=== PATIENT | female | born 1955 | race Caucasian/White ===

== ENCOUNTER 2017-11-16 12:14 | Emergency (ER) | payer BC, OTHER ==
[2017-11-16 12:28] VITALS: RESP 16; O2SAT 98
--- NOTE | 2017-11-16 12:44 | EDPHY ---
H & P Stated Complaint: BLOOD IN STOOL Time Seen by Provider: 11/16/17 12:27 - Personal History Current Tetanus/Diphtheria Vaccine: Yes - Medical/Surgical History Hx Asthma: No Hx Chronic Respiratory Disease: No Hx Diabetes: No Hx Cardiac Disease: No Hx Renal Disease: No Hx Cirrhosis: No Hx Alcoholism: No Hx HIV/AIDS: No Hx Splenectomy or Spleen Trauma: No Other PMH: tonsilectomy. r ovary removed. ortho surg. GI BLEED - Social History Smoking Status: Never smoked Constitutional: Initial Vital Signs Temperature (C) 36.9 C 11/16/17 12:27 Heart Rate 96 11/16/17 12:27 Respiratory Rate 16 11/16/17 12:27 Blood Pressure 137/127 H 11/16/17 12:27 O2 Sat (%) 98 11/16/17 12:27 O2 Delivery Mode Room Air Allergies/Adverse Reactions: No Known Allergies Allergy (Unverified 04/20/14 21:19) Home Medications: Medication Instructions Recorded Acyclovir [Zovirax 400 mg (*)] 400 mg PO TID #12 tab 04/20/14 Banco Thyroid 04/20/14 Bio Identical Hormones 04/20/14 Medical Decision Making - Diagnostics Imaging: Discussed imaging studies w/ learning technologist Radiologist ED Course/Re-evaluation: CHIEF COMPLAINT: Rectal bleeding HISTORY OF PRESENT ILLNESS: The patient is a 62 y/o female complaining of rectal bleeding this morning. She has a history of a bleeding gastric ulcer while on NSAIDs 23 years ago that required hospitalization for profound anemia. A couple weeks ago she noticed "a spot of red blood" in her stool. Today she had bright red blood in the toilet bowl with small hard stools. Bowel movements are not painful and she has not noticed any associated rectal pain. She does mention she has had a "noticeable twinge" in her left mid abdomen occasionally over the last couple months that she specifically does not describe as painful. She denies lightheadedness, syncope or near-syncope, vomiting, fever, recent illness, or recent trauma. REVIEW OF SYSTEMS: A 10 point review of systems was performed and is negative with the exception of the elements mentioned in the history of present illness. PHYSICAL EXAM: HR, BP, O2 Sat, RR. Temp noted General Appearance: Alert, well hydrated, appropriate, and non-toxic appearing. Head: Atraumatic without scalp tenderness or obvious injury Eyes: Pupils equal, round, reactive to light and accommodation, EOMI, no trauma , no injection. Nose: Atraumatic, no rhinorrhea, clear. Throat:Mucus membranes moist. Neck: Supple Respiratory: No retractions, no distress, no wheezes, and no accessory muscle use. Lungs are clear to auscultation bilaterally. Cardiovascular: Regular rate and rhythm, no murmurs, rubs, or gallops. Good capillary refill all extremities. Gastrointestinal: Abdomen is soft, mild left mid-abdomen tenderness, non- distended, no masses, no rebound, no guarding, no peritoneal signs. Musculoskeletal: Normal active ROM of all extremities, atraumatic. Neurological: Alert, appropriate, and interactive. The patient has non-focal cranial nerves, motor, sensory, and cerebellar exam. Skin: No rashes, good turgor, no nodules on palpation. PAST MEDICAL HISTORY: bleeding gastric ulcer while on NSAIDs 23 years ago PAST SURGICAL HISTORY: tonsillectomy, right oophorectomy SOCIAL HISTORY: Lives in [place]. Employed. DIAGNOSTICS/PROCEDURES/CRITICAL CARE TIME: Procedure: Anoscopy Indication: Rectal bleeding Risks, benefits, and alternative procedures were discussed and the patient consented to proceed. The patient was placed in the left lateral decubitus position. The anoscope was placed in the rectum with the introducer in place without difficulty. The introducer was easily withdrawn. Findings: internal non-thrombosed hemorrhoid, slightly bleeding and irritated at 3 o'clock position. The patient tolerated the procedure well. The procedure was performed by myself. Abdominal US: nothing acute DIFFERENTIAL DIAGNOSIS: The differential diagnosis for the patient's lower GI bleeding included but was not limited to diverticulosis, tumor, AVM, hemorrhoid , and upper GI Bleed. MEDICAL DECISION MAKING: This is a well-appearing, healthy 62 y/o female who presents with non-painful, bright red rectal bleeding this morning. She brought a stool sample with her that has been sent to the lab for occult testing. She has mild left mid- abdominal point tenderness on exam. Plan for ISTAT, anoscopy, and abdominal US. ISTAT shows a normal H&H. Anoscopy shows thrombosed internal hemorrhoid. No tenderness. Will treat with Anusol and stool softener/laxatives. US shows nothing acute. Patient will be discharged with GI referral and standard internal hemorrhoid care instructions. Return precautions discussed. She is comfortable with this plan. Departure - Departure Disposition: Home, Routine, Self-Care Clinical Impression: Constipation, Rectal bleeding, Hard stool Condition: Good Instructions: Constipation (ED), Thrombosed Hemorrhoid (ED) Additional Instructions: 1. Use Miralax, available [id number], as directed on the packaging as needed for constipation and hard stools. Increase fluid intake. 2. Use Anusol/Preparation H as directed to treat hemorrhoid for the next week. 3. Follow up with rabbit dresser in one week for reevaluation. I recommend calling first thing tomorrow morning to schedule this appointment. 4. Return to the ED for severe pain, uncontrollable bleeding, fainting, lightheadedness, bleeding elsewhere, or other worsening of condition. Referrals: Leonor Boykin MD [Primary Care Provider] - As per Instructions Merna Giron MD [Medical Doctor] - As per Instructions Report Scribed for: Fredo Vance Report Scribed by: Nova Vance Date of Report: 11/16/17 Time of Report: 12:57
[2017-11-16 14:25] VITALS: BP 148/109; PULSE 71; TEMP 98.2
== END 2017-11-16 14:25 | disposition home or self-care (01) ==
PROC: 0DJD8ZZ Inspection of Lower Intestinal Tract, Via Natural or Artificial Opening Endoscopic (ICD-10-PCS; principal; 2017-11-16)
DX: K62.5 Hemorrhage of anus and rectum (principal); K59.00 Constipation, unspecified
CPT/HCPCS: 82947-QW

== ENCOUNTER → 2018-03-26 | Outpatient (CLI) | payer BC, OTHER | LOC: FIMAGING 08:42 | PROVIDERS: ATTEND Internal Medicine | DX: Z12.31 Encounter for screening mammogram for malignant neoplasm of breast (principal) ==

== ENCOUNTER → 2018-09-19 | Outpatient (CLI) | payer OTHER | LOC: BMCIMAGING 11:23 | PROVIDERS: ATTEND Family Medicine | DX: S92.515A Nondisplaced fracture of proximal phalanx of left lesser toe(s), initial encounter for closed fracture (principal) ==